=== PATIENT | female | born 1980 | race Caucasian/White ===

== ENCOUNTER 2016-04-14 08:41 | Emergency (ER) | payer MEDICAID ==
[~2016-04-14] VITALS: Ht 157.5 cm; Wt 78.1 kg
[~2016-04-14 08:41] MED LIST: ACET500C5 PO; AMO500 PO; NITR-58 PO; PHEN-537 PO
[2016-04-14 08:43] VITALS: Ht 157.5 cm; Wt 78.1 kg
[2016-04-14] MEDS ORDERED: FAMOTIDINE 20 MG TAB PO STA (10:12)
[2016-04-14] MEDS ORDERED: LIDOCAINE/MYLANTA 40 ML BTL PO STA (10:12)
[2016-04-14] MEDS ORDERED: ONDANSETRON (ODT) 4 MG TAB ODT STA (10:12)
[2016-04-14] MEDS ORDERED: BELLADONNA/PHENOBARBITAL TAB PO STA (10:12)
[2016-04-14 10:52] LABS: ADD SCAN DIFF NO
[2016-04-14 11:05] LABS: ADD UMIC NO; URINE BILIRUBIN (Dip) NEGATIVE (NEGATIVE); URINE BLOOD (Dip) NEGATIVE (NEGATIVE); URINE COLOR LT. YELLOW (YELLOW); URINE GLUCOSE (Dip) NEGATIVE (NEGATIVE); URINE KETONES (Dip) 15 (NEGATIVE); URINE LEUKOCYTE ESTERASE (Dip) NEGATIVE (NEGATIVE); URINE NITRITE (Dip) NEGATIVE (NEGATIVE); URINE TOTAL PROTEIN (Dip) NEGATIVE (NEGATIVE); URINE UROBILINOGEN (Dip) 0.2 E.U./dL (0.1-1.0)
[2016-04-14 11:05] LABS: ALBUMIN 3.9 g/dl (3.3-4.9); BASOPHILS % 0.5 % (0.0-2.0); EOSINOPHILS % 0.5 % (0.0-7.0); HEMATOCRIT 40.1 % (37.0-47.0); HEMOGLOBIN 13.1 g/dl (12.0-16.0); LYMPHOCYTES # 2.2 10^3/ul (0.8-2.9); LYMPHOCYTES % 27.9 % (15.0-51.0); MEAN CORPUSCULAR HEMOGLOBIN 28.6 pg (29.0-33.0); MEAN CORPUSCULAR HGB CONC 32.7 g/dl (32.0-37.0); MEAN CORPUSCULAR VOLUME 87.6 fl (82.0-101.0); MEAN PLATELET VOLUME 9.1 fl (7.4-10.4); MONOCYTE # 0.6 10^3/ul (0.3-0.9); MONOCYTES % 8.1 % (0.0-11.0); NEUTROPHILS % 62.7 % (39.0-77.0); PLATELET COUNT 331 10^3/UL (140-415); RED BLOOD COUNT 4.58 10^6/ul (4.20-5.40); RED CELL DISTRIBUTION WIDTH 13.3 % (11.5-14.5); WHITE BLOOD COUNT 7.9 10^3/ul (4.8-10.8)
[2016-04-14 11:06] LABS: POTASSIUM 3.9 mmol/L (3.5-5.1)
[2016-04-14 11:08] LABS: ALBUMIN/GLOBULIN RATIO 1.11; BILIRUBIN,INDIRECT 0.4 mg/dl (0-1.1); BILIRUBIN,TOTAL 0.4 mg/dl (0.2-1.3); CREATININE 0.55 mg/dl (0.44-1.00); TOTAL PROTEIN 7.4 g/dl (6.1-8.1)
[2016-04-14 11:09] LABS: CALCIUM 9.2 mg/dl (8.4-10.2)
--- NOTE | 2016-04-14 11:09 | RADRPT ---
PROCEDURE: Abdominal Ultrasound (right upper quadrant). CLINICAL INDICATION: Abdominal pain TECHNIQUE: Multiple real-time longitudinal and transverse images of the right upper quadrant of th e abdomen were acquired utilizing a curved array transducer. Images were reviewed on a high-resoluti on PACS workstation. COMPARISON: None FINDINGS: The liver is normal in size and echogenicity. No focal masses are identified. There is no evidenc e of intra or extrahepatic ductal dilatation. The common bile duct measures 4.7 mm in diameter. The re is a 4 mm nonshadowing, nonmobile, echogenic focus within the gallbladder consistent with a nonsh adowing stone versus sludge ball. There is no gallbladder wall thickening. The visualized portions of the pancreas are unremarkable with obscuration of the tail of the pancrea s. No free fluid is identified. There is no evidence of right hydronephrosis or renal calcification. The right kidney measures 11.3 cm in length. The visualized portions of the aorta and inferior vena cava are within normal limits. IMPRESSION: 1. 4 mm nonshadowing gallstone versus sludge ball. 2. Otherwise unremarkable right upper quadrant ultrasound. RPTAT: AA .Erasto Kemp MD, MD Date Time Electronically viewed and signed by .Erasto Kemp MD, MD on 04/14/2016 11:09 .B/
[2016-04-14] MEDS ORDERED: ONDA4TAB8 PO (11:32)
--- NOTE | 2016-04-14 13:11 | ERD ---
ER Documentation Chief Complaint Date/Time DATE: 04/14/16 TIME: 13:04 Chief Complaint AP X 1 5 DAYS HPI This is a 36-year-old female presents to the ER with epigastric pain and discomfort for the last 3 days. Patient states that she has been feeling very nauseous lately. She denies any vomiting however does admit to diarrhea. Patient states that 8 days ago she felt similarly however it resolved. Patient is also complaining of shortness of breath. Patient is also complaining of upper back pain. Patient denies any fevers or chills. She denies any recent travel. Denies any trauma. She does not know when her last normal menstrual period was asked. Menstruation is irregular. ROS 12 point review of systems was done, all negative except per HPI. Medications Home Meds Active Scripts Ondansetron Hcl* (Zofran*) 4 Mg Tablet, 4 MG PO Q6H for NAUSEA AND/OR VOMITING, #30 TAB Prov:LAKISHA GALVEZ 04/14/16 Acetaminophen* (Tylophen*) 500 Mg Capsule, 1 CAP PO Q6H Y for PAIN AND OR ELEVATED TEMP, #20 CAP Prov:MANAGUELOD,HUMPHREY P ASSOCIATE MEDIA DIRECTOR 11/13/15 Amoxicillin* (Amoxicillin*) 500 Mg Cap, 500 MG PO TID for 10 Days, CAP Prov:MANAGUELOD,HUMPHREY P ASSOCIATE MEDIA DIRECTOR 11/13/15 Phenazopyridine Hcl* (Pyridium*) 100 Mg Tab, 100 MG PO TID for 3 Days, TAB Prov:JAMESSHYAM I. ASSOCIATE MEDIA DIRECTOR 07/02/15 Nitrofurantoin Monohyd Macrocr (Macrobid) 100 Mg Capsr, 100 MG PO BID for 5 Days , CAP Prov:JAMESSHYAM I. ASSOCIATE MEDIA DIRECTOR 07/02/15 Allergies Allergies: Coded Allergies: No Known Allergy (Unverified , 11/13/15) PMhx/Soc Medical and Surgical Hx: pt denies Medical Hx, pt denies Surgical Hx History of Surgery: No Anesthesia Reaction: No Hx Neurological Disorder: No Hx Respiratory Disorders: No Hx Cardiac Disorders: No Hx Psychiatric Problems: No Hx Miscellaneous Medical Probl: Yes (no menstrual period for 2 years) Hx Alcohol Use: No Hx Substance Use: No Hx Tobacco Use: No Smoking Status: Never smoker Physical Exam Vitals Vital Signs Date Time Temp Pulse Resp B/P Pulse Ox O2 Delivery O2 Flow Rate FiO2 3/10/17 08:43 98.1 65 20 101/64 99 Physical Exam GENERAL: The patient is well developed and appropriate for usual state of health , in no apparent distress. HEENT: Atraumatic. CHEST: Clear to auscultation bilaterally. There are no rales, wheezes or rhonchi. HEART: Regular rate and rhythm. No murmurs, clicks, rubs or gallops. ABDOMEN: Soft, nontender and nondistended. Good bowel sounds. No rebound or guarding. No gross peritonitis. No gross organomegaly or masses. No Gonzales sign or McBurney point tenderness. BACK: No midline or flank tenderness. NEURO: Alert and oriented. Result Diagram: 04/14/16 1042 04/14/16 1042 Results 24 hrs Laboratory Tests Test 04/14/16 10:30 04/14/16 10:42 Urine Bilirubin NEGATIVE Urine Clarity CLEAR Urine Color LT. YELLOW Urine Glucose NEGATIVE% Urine Hemoglobin NEGATIVE Urine Ketones 15 Urine Leukocyte Esterase NEGATIVE Urine Nitrite NEGATIVE Urine Specific [place] 1.025 Urine Total Protein NEGATIVE Urine Urobilinogen 0.2 E.U./dL Urine pH 6.0 Alanine Aminotransferase (ALT/SGPT) 53IU/L Albumin 3.9g/dl Albumin/Globulin Ratio 1.11 Alkaline Phosphatase 63IU/L Anion Gap 19 Aspartate Amino Transf (AST/SGOT) 46IU/L Basophils # 0.010^3/ul Basophils % 0.5% Blood Urea Nitrogen 8mg/dl Calcium Level 9.2mg/dl Carbon Dioxide Level 22mmol/L Chloride Level 104mmol/L Creatinine 0.55mg/dl Direct Bilirubin 0.00mg/dl Eosinophils # 0.010^3/ul Eosinophils % 0.5% Globulin 3.50g/dl Glucose Level 86mg/dl Hematocrit 40.1% Hemoglobin 13.1g/dl Indirect Bilirubin 0.4mg/dl Lipase 86U/L Lymphocytes # 2.210^3/ul Lymphocytes % 27.9% Mean Corpuscular Hemoglobin 28.6pg Mean Corpuscular Hemoglobin Concent 32.7g/dl Mean Corpuscular Volume 87.6fl Mean Platelet Volume 9.1fl Monocytes # 0.610^3/ul Monocytes % 8.1% Neutrophils # 5.010^3/ul Neutrophils % 62.7% Nucleated Red Blood Cells # 0.010^3/ul Nucleated Red Blood Cells % 0.0/100WBC Platelet Count 74562^3/UL Potassium Level 3.9mmol/L Red Blood Count 4.5810^6/ul Red Cell Distribution Width 13.3% Sodium Level 141mmol/L Total Bilirubin 0.4mg/dl Total Protein 7.4g/dl White Blood Count 7.910^3/ul Current Medications Medications (Trade) Dose Ordered Sig/[place] Route PRN Reason Start Time Stop Time Status Last Admin Dose Admin Famotidine (Pepcid) 20 mg ONCE STAT PO 04/14/16 10:12 04/14/16 10:15 DC 04/14/16 10:29 Miscellaneous Medication (Gi Cocktail (2)) 40 ml ONCE STAT PO 04/14/16 10:12 04/14/16 10:15 DC 04/14/16 10:29 Belladonna/ Phenobarbital () 2 tab ONCE STAT PO 04/14/16 10:12 04/14/16 10:36 DC Ondansetron HCl (Zofran Odt) 4 mg ONCE STAT ODT 04/14/16 10:12 04/14/16 10:15 DC 04/14/16 10:29 Procedures/MDM This is a 36-year-old female presents to the ER with multiple complaints. EKG was taken and read by Dr. Monsivais 73bpm no ST elevation no T wave inversion. Patient was found to be in the ER. She did not have any complaints of vaginal bleeding or pelvic pain at this time. Dyess of the gallbladder was done and she did have some gallstones. There is no elevation in her liver enzymes or her lipase. Her white blood cell count and she is afebrile and well- appearing. Patient's nausea is more than likely attributed to her , however may also be due to her gallstones. Suspicion for cholecystitis, choledocholithiasis is low. Suspicion for surgical abdomen is low. Patient needs to follow-up with her primary care doctor within 1-2 days return to ER sooner if symptoms worsen. My medical decision making was shared with the patient she understands and agrees with plan. Departure Diagnosis: Primary Impression: Condition: Stable Patient Instructions: , New Dx Additional Instructions: Llame al doctor MAANA y rasheed elliott EFRAIN PARA DENTRO DE 1-2 RAYGOZA.Dgale a la secretaria que nosotros le instruimos hacer esta efrain.Avise o llame si abdalla condicin se empeora antes de la efrain. Regresa aqui si peor o no mejor. LAKISHA GALVEZ Apr 14, 2016 13:11
== END 2016-04-14 11:45 | disposition home or self-care (01) ==
LOC: FTE 08:41
DX: R10.13 Epigastric pain (principal); R11.0 Nausea; Z33.1 Pregnant state, incidental
CPT/HCPCS: 36415; 76705; 80053; 81003; 83690; 85025; Z7502; Z7610

== ENCOUNTER 2016-12-08 21:43 | Inpatient (IN) | payer MEDICAID ==
[~2016-12-08] VITALS: Ht 149.9 cm; Wt 97.9 kg
[~2016-12-08 21:43] MED LIST changes: -AMO500 PO; +AMOX500C2 PO; +ONDA4TAB8 PO
[2016-12-08 22:52] VITALS: BP 108/67; PULSE 88; RESP 18
[2016-12-08] MEDS ORDERED: PREN-6 PO (22:55)
[2016-12-08] MEDS ORDERED: CALC600T5 PO (22:55)
[2016-12-08] MEDS ORDERED: OXYTOCIN 30 UNITS/LR 500 ML IV PRN (23:00)
[2016-12-08] MEDS ORDERED: BUTORPHANOL 2 MG INJ IV PRN (23:00)
[2016-12-08] MEDS ORDERED: OXYTOCIN 30 UNITS/LR 500 ML IV SCH ×2 (23:00)
[2016-12-08] MEDS ORDERED: LIDOCAINE 1% (MPF) 30 ML INJ INJ PRN (23:00)
[2016-12-08] MEDS ORDERED: MISOPROSTOL 200 MCG TAB PR PRN (23:00)
[2016-12-08] MEDS ORDERED: CARBOPROST 250 MCG INJ IM PRN (23:00)
[2016-12-08] MEDS ORDERED: IBUPROFEN 600 MG TAB PO PRN (23:00)
[2016-12-08] MEDS ORDERED: METHYLERGONOVINE 0.2 MG INJ IM PRN (23:00)
--- NOTE | 2016-12-08 23:13 | TRIAGE ---
OB Triage Datetime Report Generated by CPN: 12/08/2016 23:13 Datetime: 12/08/2016 22:47 Stage of : OB Triage Datetime: 12/08/2016 22:38 Stage of : OB Triage Labor Evaluation Frequency: 3-5 Monitor Mode: External Duration (sec)2399: 40-60 Quality: Moderate Pattern: Normal: <= 5 Contractions in 10 Minutes Resting Tone [place]: Relaxed Heart Rate FHR Baseline Rate: 135 Monitor Mode: External US FHR Baseline Changes: No Baseline Change Variability: Moderate 6-25 bpm Accelerations: 15X15 Decelerations: None Category: Category I Vaginal Exam Dilatation (cms): 3.0 Effacement (%): 70 Station: -3 Exam By: Patrick Mahmood Membrane Status: Intact Vaginal Bleeding: Normal Show Cervix, Consistency: Soft Cervix, Position: Posterior Presentation 'A': Cephalic Datetime: 12/08/2016 22:03 Stage of : OB Triage Maternal Assessment Level of Consciousness: Fully Conscious Headache: Denies Blurred Vision: No Respiratory Effort: Unlabored Nausea/Vomiting: Denies RUQ Epigastric Pain: Denies Facial Edema: None Labor Evaluation Frequency: placed Monitor Mode: External Resting Tone [place]: Relaxed Heart Rate FHR Baseline Rate: 130 Monitor Mode: External US Pain Assessment Pain Scale: 6 Pain Presence: Intermittent Pain Type: Contraction Pain Location: Abdomen Datetime: 12/08/2016 22:00 Time of Arrival: 12/08/2016 21:42 EGA: 39.1 Arrived By: Wheelchair Arrived From: Home Chief Complaint: c/o ucs Movement: Present Contractions: Regular Time Contractions Began: 12/08/2016 08:00 Contractions: Q5 Rupture of Membranes: Denies Vaginal Bleeding: None Vaginal Discharge: Denies Recent Sexual Intercouse: Denies Abdominal Trauma: Not Applicable Patient Complaints: Contractions Time Provider Notified: 12/08/2016 22:47 Provider Notified: dR Bullock Initial Plan: SAHNNON ROCA
--- NOTE | 2016-12-08 23:37 | RADRPT ---
PROCEDURE: Obstetrical ultrasound. CLINICAL INDICATION: , evaluation. Pelvic pain. TECHNIQUE: Transabdominal sonographic images of the uterus obtained after first trimester , greater than 14 weeks gestation. Single intrauterine gestation present. COMPARISON: No prior studies are available for comparison. FINDINGS: Single intrauterine gestation. There is a cephalic presentation. Measurements were made in order to determine age. The results are as follows: BPD = 37 weeks 6 day(s) HC = 38 weeks 5 day(s) AC = 41 weeks 2 day(s) FL = 39 weeks 0 day(s) SCARLET = not measured Heart rate = 140 beats per minute The placenta is anterior. There is no evidence for an abruption or placenta previa. Ovaries are not visualized. IMPRESSION: Single intrauterine gestation of approximately 39 weeks 2 days by ultrasound criteria. [place] estimated weight = 3974 g; 87 percentile for gestational age of 39 weeks 1 days. RPTAT: AADD .Chad Chan MD, MD Date Time Electronically viewed and signed by .Chad Chan MD, on 12/08/2016 23:36 .B/
[2016-12-09] MEDS ORDERED: LACTATED RINGER'S 1,000 ML IV PRN (00:30)
[2016-12-09] MEDS: LACTATED RINGER'S 1,000 ML IV SCH ×3 (02:06→14:30)
[2016-12-09] MEDS ORDERED: FENTAnyl 2MCG/ML-ROPIV 0.2% 100 ML ONE (08:08)
[2016-12-09] MEDS ORDERED: MINERAL OIL LIGHT 10 ML VIAL TOP PRN (08:30)
[2016-12-09] MEDS ORDERED: NALOXONE (0.4 MG/ML) INJ IV PRN (09:00)
[2016-12-09] MEDS ORDERED: FENTAnyl 2MCG/ML-ROPIV 0.2% 100 ML BAG EPI SCH (09:00)
[2016-12-09] MEDS ORDERED: ONDANSETRON 4 MG INJ IV STA (09:28)
[2016-12-09] MEDS ORDERED: ONDANSETRON 4 MG INJ IV PRN (09:30)
[2016-12-09] MEDS ORDERED: ONDANSETRON 4 MG INJ ONE (09:30)
[2016-12-09] MEDS ORDERED: OXYTOCIN 30 UNITS/LR 500 ML IV SCH (13:00)
[2016-12-09] MEDS ORDERED: DEXTROSE 5%-LR 1,000 ML IV PRN (15:15)
--- NOTE | 2016-12-09 16:37 | HP ---
Date/Time of Note Date/Time of Note DATE: 12/09/16 TIME: 16:36 OB - History Hx of Present Free Text/Dictation term preg in labor Care: Good Care Ultrasounds: Normal mid trimester US Obstetrical Complications: None Medical Complications: None Past Family/Social History * Past Medical, Surgical, Family and Obstetric Histories reviewed from chart. OB Admission Exam Vital Signs Vital Signs Vital Signs Date Time Temp Pulse Resp B/P Pulse Ox O2 Delivery O2 Flow Rate FiO2 12/08/16 22:52 98.0 88 18 108/67 Room Air Physical Exam HEENT: WNL Heart: Rhythm Normal Lungs: Clear, Equal Abdomen: WNL Extremities: Normal Reflexes: Normal Cervical Dilatation: 10cm Contractions on Admission: 6-10 Minutes Apart Last 72 hours Lab Results CBC & BMP 12/09/16 02:00 OB Assessment/Plan Reason for admission: active labor Plan: Expectant Management PEDRO PABLO VASQUEZ MD Dec 09, 2016 16:37
--- NOTE | 2016-12-09 16:38 | LDN ---
Date/Time of Note Date/Time of Note DATE: 12/09/16 TIME: 16:37 Delivery Summary NSD Placenta Delivered: Spontaneously Meconium: none Episiotomy: No Perineal laceration: 1 Estimated blood loss: 300 Sponge & Needle done & correct: Yes All needle counts correct: Yes Problems: PEDRO PABLO VASQUEZ MD Dec 09, 2016 16:38
[2016-12-09] MEDS: OXYTOCIN 30 UNITS/LR 500 ML IV SCH ×2 (18:59→22:59)
[2016-12-09] MEDS ORDERED: MAGNESIUM HYDROXIDE 30ML CUP PO PRN (19:00)
[2016-12-09] MEDS: IBUPROFEN 800 MG TAB PO SCH (19:00)
[2016-12-09] MEDS ORDERED: DIPHENHYDRAMINE 25 MG CAP PO PRN (19:00)
[2016-12-09] MEDS ORDERED: BENZOCAINE 20% 56 ML SPRAY TOP PRN (19:00)
[2016-12-09] MEDS ORDERED: WITCH HAZEL/GLYCERIN PAD PR PRN (19:00)
[2016-12-09] MEDS ORDERED: ACETAMINOPHEN 325 MG TAB PO PRN (19:00)
[2016-12-09] MEDS ORDERED: LANOLIN 7 GM TUBE TOP PRN (19:00)
[2016-12-09] MEDS ORDERED: CARBOPROST 250 MCG INJ IM PRN (19:00)
[2016-12-09] MEDS ORDERED: OXYTOCIN 30 UNITS/LR 500 ML IV PRN (19:00)
[2016-12-09] MEDS ORDERED: ZOLPIDEM 5 MG TAB PO PRN (19:00)
[2016-12-09] MEDS ORDERED: METHYLERGONOVINE 0.2 MG INJ IM PRN (19:00)
[2016-12-09] MEDS ORDERED: MISOPROSTOL 200 MCG TAB PR PRN (19:00)
[2016-12-09] MEDS: LACTATED RINGER'S 1,000 ML IV* SCH (20:57)
[2016-12-09 21:10] VITALS: BP 88/50; PULSE 78; RESP 18
[2016-12-09] MEDS: HYDROCODONE/APAP (5/325) TAB PO PRN (21:42)
[2016-12-09 22:10] VITALS: BP 106/59; PULSE 80; RESP 18
[2016-12-10] MEDS: IBUPROFEN 800 MG TAB PO SCH ×4 (00:16→17:27)
[2016-12-10] MEDS: LACTATED RINGER'S 1,000 ML IV* SCH (02:59)
[2016-12-10 04:10] VITALS: BP 96/56; PULSE 86; RESP 18
[2016-12-10 08:12] VITALS: BP 96/65; PULSE 83; RESP 18
[2016-12-10] MEDS: HYDROCODONE/APAP (5/325) TAB PO PRN (08:13)
[2016-12-10 17:08] VITALS: BP 98/54; PULSE 88; RESP 18
[2016-12-10 20:00] VITALS: BP 102/59; PULSE 92; RESP 18
[2016-12-10] MEDS: SENNA/DOCUSATE NA (8.6MG/50MG) TAB PO PRN (21:18)
[2016-12-11] MEDS: IBUPROFEN 800 MG TAB PO SCH ×3 (00:08→12:51)
[2016-12-11 04:00] VITALS: BP 108/65; PULSE 75; RESP 19
[2016-12-11 07:42] VITALS: BP 100/60; PULSE 65; RESP 18
[2016-12-11] MEDS ORDERED: DIPHTH/TET/ACEL PERTUSS (ADULT) 0.5 ML VIAL IM* ONE (09:00)
[2016-12-11] MEDS ORDERED: VARICELLA VACCINE LIVE/PF 1,350 UNIT/0.5 ML ML SC* ONE (09:00)
[2016-12-11] MEDS ORDERED: MEASLES,MUMPS,RUBELLA VACCINE INJ SC* ONE (09:00)
[2016-12-11] MEDS: SENNA/DOCUSATE NA (8.6MG/50MG) TAB PO PRN (09:23)
--- NOTE | 2016-12-11 13:52 | DS ---
Date/Time of Note Date/Time of Note DATE: 12/11/16 TIME: 13:52 Discharge Summary Admission/Discharge Info Admit Date/Time Dec 08, 2016 at 22:47 Discharge Date/Time Discharge Diagnosis term preg Patient Condition: Good Hospital Course unremarkable Home Meds Reported Medications Calcium Carbonate (CALCIUM) 600 Mg Tablet, 600 MG PO DAILY, TAB 12/08/16 Vits #93-Iron Fum-FA ( Formula) 1 Each Tablet, 1 TAB PO DAILY, TAB 12/08/16 Discontinued Scripts Ondansetron Hcl* (Zofran*) 4 Mg Tablet, 4 MG PO Q6H for NAUSEA AND/OR VOMITING, #30 TAB Prov:LAKISHA GALVEZ 04/14/16 Acetaminophen* (Tylophen*) 500 Mg Capsule, 1 CAP PO Q6H Y for PAIN AND OR ELEVATED TEMP, #20 CAP Prov:HUMPHREY DOMINGUEZ TALKING BOOKS LIBRARY CLERK 11/13/15 Amoxicillin* (Amoxicillin*) 500 Mg Cap, 500 MG PO TID for 10 Days, CAP Prov:HUMPHREY DOMINGUEZ TALKING BOOKS LIBRARY CLERK 11/13/15 Phenazopyridine Hcl* (Pyridium*) 100 Mg Tab, 100 MG PO TID for 3 Days, TAB Prov:SHYAM JAMES NP 07/02/15 Nitrofurantoin Monohyd Macrocr (Macrobid) 100 Mg Capsr, 100 MG PO BID for 5 Days , CAP Prov:SHYAM JAMES I. TALKING BOOKS LIBRARY CLERK 07/02/15 Primary Care Provider Not On Staff Doctor PEDRO PABLO VASQUEZ MD Dec 11, 2016 13:52
--- NOTE | 2016-12-11 13:52 | DS ---
Date/Time of Note Date/Time of Note DATE: 12/11/16 TIME: 13:52 Discharge Summary Admission/Discharge Info Admit Date/Time Dec 08, 2016 at 22:47 Discharge Date/Time Discharge Diagnosis term preg Patient Condition: Good Hospital Course unremarkable Home Meds Reported Medications Calcium Carbonate (CALCIUM) 600 Mg Tablet, 600 MG PO DAILY, TAB 12/08/16 Vits #93-Iron Fum-FA ( Formula) 1 Each Tablet, 1 TAB PO DAILY, TAB 12/08/16 Discontinued Scripts Ondansetron Hcl* (Zofran*) 4 Mg Tablet, 4 MG PO Q6H for NAUSEA AND/OR VOMITING, #30 TAB Prov:LAKISHA GALVEZ 04/14/16 Acetaminophen* (Tylophen*) 500 Mg Capsule, 1 CAP PO Q6H Y for PAIN AND OR ELEVATED TEMP, #20 CAP Prov:HUMPHREY DOMINGUEZ FIELD SALES ASSOCIATE 11/13/15 Amoxicillin* (Amoxicillin*) 500 Mg Cap, 500 MG PO TID for 10 Days, CAP Prov:HUMPHREY DOMINGUEZ FIELD SALES ASSOCIATE 11/13/15 Phenazopyridine Hcl* (Pyridium*) 100 Mg Tab, 100 MG PO TID for 3 Days, TAB Prov:SHYAM JAMES NP 07/02/15 Nitrofurantoin Monohyd Macrocr (Macrobid) 100 Mg Capsr, 100 MG PO BID for 5 Days , CAP Prov:SHYAM JAMES I. FIELD SALES ASSOCIATE 07/02/15 Primary Care Provider Not On Staff Doctor PEDRO PABLO VASQUEZ MD Dec 11, 2016 13:52
--- NOTE | 2016-12-11 13:52 | DS ---
Date/Time of Note Date/Time of Note DATE: 12/11/16 TIME: 13:52 Discharge Summary Admission/Discharge Info Admit Date/Time Dec 08, 2016 at 22:47 Discharge Date/Time Discharge Diagnosis term preg Patient Condition: Good Hospital Course unremarkable Home Meds Reported Medications Calcium Carbonate (CALCIUM) 600 Mg Tablet, 600 MG PO DAILY, TAB 12/08/16 Vits #93-Iron Fum-FA ( Formula) 1 Each Tablet, 1 TAB PO DAILY, TAB 12/08/16 Discontinued Scripts Ondansetron Hcl* (Zofran*) 4 Mg Tablet, 4 MG PO Q6H for NAUSEA AND/OR VOMITING, #30 TAB Prov:LAKISHA GALVEZ 04/14/16 Acetaminophen* (Tylophen*) 500 Mg Capsule, 1 CAP PO Q6H Y for PAIN AND OR ELEVATED TEMP, #20 CAP Prov:HUMPHREY DOMINGUEZ TRACK INSPECTOR 11/13/15 Amoxicillin* (Amoxicillin*) 500 Mg Cap, 500 MG PO TID for 10 Days, CAP Prov:HUMPHREY DOMINGUEZ TRACK INSPECTOR 11/13/15 Phenazopyridine Hcl* (Pyridium*) 100 Mg Tab, 100 MG PO TID for 3 Days, TAB Prov:SHYAM JAMES NP 07/02/15 Nitrofurantoin Monohyd Macrocr (Macrobid) 100 Mg Capsr, 100 MG PO BID for 5 Days , CAP Prov:SHYAM JAMES I. TRACK INSPECTOR 07/02/15 Primary Care Provider Not On Staff Doctor PEDRO PABLO VASQUEZ MD Dec 11, 2016 13:52
--- NOTE | 2016-12-11 13:53 | PD.PPDC ---
HOSIERY KNITTER Discharge Instruction Condition Patient Condition: Good Diet Diet: Resume Regular Diet Activity/Restrictions Activity: Normal Activity May Shower Restrictions: No Exercising No Lifting No Driving No Sexual Activity Nothing in the Vagina No [place] No Tampons, douche Wound/Drain Care Instructions Wound/Drain Care Instructions: Wash with soap and water Keep clean and dry Follow-up Follow-up with Physician: 3 Return to clinic for [employer] Instructions: Fever greater than 101 Chills Worsening abdominal pain Excessive Vaginal Bleeding More than 2 pads per hour Unable to tolerate diet OB Instructions: Breast Tenderness Depression Blurried Vision Headache Surgical Instructions: Incisional Drainage Incisional Redness PEDRO PABLO VASQUEZ MD Dec 11, 2016 13:53
--- NOTE | 2016-12-11 13:53 | PD.PPDC ---
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
--- NOTE | 2016-12-11 13:53 | PD.PPDC ---
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
== END 2016-12-11 17:30 | disposition home or self-care (01) | DRG 775 ==
LOC: OBT 21:43 → L-D 21:46 → OBT 22:47 → UNDOADMIN 22:47 → L-D 12-09 01:04 → UNDOADMIN 12-09 01:04 → L-D 12-09 01:13 → PP1 12-09 20:46
PROVIDERS: ADMIT Obstetrics & Gynecology; ATTEND Obstetrics & Gynecology
PROC: 10E0XZZ Delivery of Products of Conception, External Approach (ICD-10-PCS; principal; 2016-12-09)
DX: O80 Encounter for full-term uncomplicated delivery (principal); Z37.0 Single live birth; Z3A.39 39 weeks gestation of pregnancy
CPT/HCPCS: 62319; 76815; 85025; 85610; 85730; 86592; 86900; 86901; 87340; 90715; 90716; 99464; G0463; J2405; J2590; J3010; J7120

== ENCOUNTER 2017-09-01 22:14 | Emergency (ER) | END 2017-09-02 00:05 | disposition home or self-care (01) ==